=== PATIENT | female | born 1940 | race Caucasian/White ===

== ENCOUNTER 2017-09-23 05:54 | Day surgery (SDC) | payer MEDICARE ==
[~2017-09-23] VITALS: Ht 165.1 cm; Wt 74.9 kg
[~2017-09-23 05:54] MED LIST: REGADENOSON 0.4 MG/5 ML SYRINGE ONE
[2017-09-23 06:50] VITALS: BP 133/84
[2017-09-23] MEDS ORDERED: SODIUM CHLORIDE 0.9% 1,000 ML IV SCH (06:52)
[2017-09-23] MEDS ORDERED: FENTANYL PF 100 MCG/2ML ONE (07:53)
[2017-09-23] MEDS ORDERED: FLUMAZENIL 0.1 MG/1 ML, 5ML ONE (07:53)
[2017-09-23] MEDS ORDERED: MIDAZOLAM 1 MG/ML, 5ML ONE (07:53)
[2017-09-23] MEDS ORDERED: NALOXONE 1 MG/ML, 2ML ONE (07:53)
[2017-09-23] MEDS ORDERED: LIDOCAINE 1%, 20ML ONE (07:57)
== END 2017-09-23 11:00 ==
LOC: OUT 05:54
PROVIDERS: ATTEND Nurse Practitioner Primary Care
DX: C34.92 Malignant neoplasm of unspecified part of left bronchus or lung (principal)
CPT/HCPCS: 32405; 71010; 77012; 88305; 88312; 88341; 88342; 99156; C2613; J2250; J2785; J3010; J3490; J7030; 99157; G0461; J2310

== ENCOUNTER → 2017-10-21 | Outpatient (CLI) | payer MEDICARE | END | disposition home or self-care (01) | LOC: PETCFH 10-10 12:45 | PROVIDERS: ATTEND Thoracic Surgery (Cardiothoracic Vascular Surgery) | DX: C34.32 Malignant neoplasm of lower lobe, left bronchus or lung (principal); D38.1 Neoplasm of uncertain behavior of trachea, bronchus and lung | CPT/HCPCS: 78815; A9552 ==

== ENCOUNTER → 2017-11-01 | Outpatient (CLI) | payer MEDICARE ==
[~2017-11-01] MED LIST changes: +ASPI-496 PO; +CALC1CAP8 PO; +CHOL10003 PO; +MULT-257 PO; -REGADENOSON 0.4 MG/5 ML SYRINGE ONE; +SIMV20TA3 PO; +TIMO5DRO33 RIGHTEYE
[2017-11-01 10:23] LABS: BASOPHILS # (AUTO) 0.03 x10^3/uL (0-0.1); BASOPHILS % (AUTO) 0 % (0-1); EOSINOPHILS # (AUTO) 0.05 x10^3/uL (0-0.4); EOSINOPHILS % (AUTO) 1 % (1-7); LYMPHOCYTES # (AUTO) 1.56 x10^3/uL (1-3.4); LYMPHOCYTES % (AUTO) 18 % (22-44); MD NO; MEAN CORPUSCULAR HEMOGLOBIN 30.7 pg (27.0-34.8); MEAN CORPUSCULAR HGB CONC 33.8 g/dL (32.4-35.8); MEAN CORPUSCULAR VOLUME 90.7 fL (80-100); MONOCYTES # (AUTO) 0.69 x10^3/uL (0.2-0.8); MONOCYTES % (AUTO) 8 % (2-9); NEUTROPHILS # (AUTO) 6.12 x10^3/uL (1.8-6.8); NEUTROPHILS % (AUTO) 72 % (42-75); PLATELET COUNT 283 x10^3/uL (130-400); RED CELL DISTRIBUTION WIDTH 12.4 % (9.6-15.2)
[2017-11-01 10:31] LABS: ALANINE AMINOTRANSFERASE 27 U/L (12-78); ALBUMIN 3.7 g/dL (3.4-5.0); ANION GAP 4 mmol/L (5-15); CALCIUM 9.2 mg/dL (8.5-10.1); CHLORIDE 106 mmol/L (98-107)
[2017-11-01 10:34] LABS: ALKALINE PHOSPHATASE 178 U/L (45-117); BILIRUBIN,TOTAL 0.4 mg/dL (0.2-1.0); TOTAL PROTEIN 8.3 g/dL (6.4-8.2)
== END | disposition home or self-care (01) ==
LOC: STAR 09:08
PROVIDERS: ATTEND Thoracic Surgery (Cardiothoracic Vascular Surgery)
DX: Z01.818 Encounter for other preprocedural examination (principal)
CPT/HCPCS: 36415; 80053; 85025; 93005

== ENCOUNTER 2017-11-06 08:29 | Inpatient (IN) | payer MEDICARE ==
[~2017-11-06] VITALS: Ht 166.4 cm; Wt 76.3 kg
[~2017-11-06 08:29] MED LIST changes: +BUPIVACAINE/PF 0.5% ONE
[2017-11-06 09:27] VITALS: BP 120/80
[2017-11-06] MEDS ORDERED: LACTATED RINGERS 1,000 ML IV SCH ×2 (09:35→11:48)
[2017-11-06] MEDS ORDERED: FENTANYL PF 100 MCG/2ML ONE ×3 (09:51→12:00)
[2017-11-06] MEDS ORDERED: MIDAZOLAM 1 MG/ML, 2ML ONE (09:51)
[2017-11-06] MEDS ORDERED: ROCURONIUM 10 MG/ML,10ML ONE (11:00)
[2017-11-06] MEDS ORDERED: PROPOFOL 10 MG/ML, 20ML ONE (11:00)
[2017-11-06] MEDS ORDERED: PHENYLEPHRINE 10 MG/ML ONE (11:00)
[2017-11-06] MEDS ORDERED: DEXAMETHASONE 4 MG/ML, 1ML ONE ×2 (11:00)
[2017-11-06] MEDS ORDERED: BUPIVACAINE/PF-EPI 0.5% 1:200K IM ONE (11:10)
[2017-11-06] MEDS ORDERED: GLYCOPYRROLATE 0.4 MG/2 ML, 2ML ONE (11:29)
[2017-11-06] MEDS ORDERED: NEOSTIGMINE 1 MG/ML, 10ML ONE (11:29)
[2017-11-06] MEDS ORDERED: ACETAMINOPHEN 325 MG TABLET PO PRN ×2 (11:30→12:00)
[2017-11-06] MEDS ORDERED: ONDANSETRON 2MG/ML, 2ML IVPush PRN (11:30)
[2017-11-06] MEDS ORDERED: HYDROmorphone 1 MG/ML, 1ML IV PRN (11:30)
[2017-11-06] MEDS ORDERED: LABETALOL 5MG/ML, 20ML IV PRN (11:30)
[2017-11-06] MEDS ORDERED: PROMETHAZINE 25 MG/ML, 1ML IV PRN (11:30)
[2017-11-06] MEDS ORDERED: MEPERIDINE/PF 25MG/0.5ML IVPush PRN (11:30)
[2017-11-06] MEDS ORDERED: hydrALAzine 20 MG/ML, 1ML IV PRN (11:30)
[2017-11-06] MEDS ORDERED: ALBUTEROL SULFATE 2.5 MG/3 ML NPPB PRN (11:30)
[2017-11-06] MEDS ORDERED: ALBUTEROL/IPRATROPIUM 2.5MG/0.5MG, 3 ML NPPB PRN (11:30)
[2017-11-06] MEDS ORDERED: OXYcodone 5 MG/5 ML ORAL.SOL UDC PO PRN (11:30)
[2017-11-06] MEDS ORDERED: ACETAMINOPHEN 650 MG/20.3 ML UDC ONE (12:00)
[2017-11-06] MEDS ORDERED: morphine SULFATE 10 MG/ML, 1ML IVPush PRN (12:00)
[2017-11-06] MEDS ORDERED: DIPHENHYDRAMINE 50 MG/ML, 1ML IVPush PRN (12:00)
[2017-11-06] MEDS ORDERED: hydrALAzine 20 MG/ML, 1ML IVPush PRN (12:00)
[2017-11-06] MEDS ORDERED: DIPHENHYDRAMINE 25 MG CAPSULE PO PRN (12:00)
[2017-11-06] MEDS ORDERED: LORazepam 2 MG/ML, 1ML IVPush PRN (12:00)
[2017-11-06] MEDS: FAMOTIDINE 20 MG/2 ML IVPush SCH (12:00)
[2017-11-06] MEDS ORDERED: ACETAMINOPHEN 650 MG SUPP PR PRN (12:00)
[2017-11-06] MEDS ORDERED: LORazepam 1MG TABLET PO PRN (12:00)
[2017-11-06] MEDS ORDERED: FAMOTIDINE 20 MG TABLET PO SCH (12:00)
[2017-11-06] MEDS ORDERED: ENALAPRILAT 1.25 MG/ML, 2ML IVPush PRN (12:00)
[2017-11-06] MEDS ORDERED: OXYcodone 5 MG/5 ML ORAL.SOL UDC ONE (12:01)
[2017-11-06] MEDS: FENTANYL PF 100 MCG/2ML IV PRN ×2 (12:05→12:15)
[2017-11-06 13:30] VITALS: BP 122/78
[2017-11-06] MEDS: TIMOLOL STRENGTH MC SCH ×2 (14:00→22:00)
[2017-11-06] MEDS: HYDROcodone/APAP 5/325 TABLET PO PRN ×2 (14:44→20:31)
[2017-11-06] MEDS ORDERED: ONDANSETRON 2MG/ML, 2ML ONE (16:22)
[2017-11-06 19:49] VITALS: BP 109/71
[2017-11-06] MEDS: SIMVASTATIN 20 MG TABLET PO SCH (20:33)
[2017-11-06] MEDS ORDERED: TEMPLATE NON-FORMULARY MED. (Timolol Maleate 1 DROP) RIGHTEYE SCH (21:00)
[2017-11-07] MEDS: FAMOTIDINE 20 MG/2 ML IVPush SCH (00:22)
[2017-11-07] MEDS: HYDROcodone/APAP 5/325 TABLET PO PRN ×3 (02:37→21:36)
[2017-11-07 02:46] VITALS: BP 117/63
[2017-11-07 03:46] LABS: BASOPHILS % (AUTO) 0 % (0-1); EOSINOPHILS % (AUTO) 0 % (1-7); LYMPHOCYTES % (AUTO) 9 % (22-44); MD NO; MEAN CORPUSCULAR HEMOGLOBIN 30.7 pg (27.0-34.8); MEAN CORPUSCULAR HGB CONC 33.6 g/dL (32.4-35.8); MEAN CORPUSCULAR VOLUME 91.4 fL (80-100); MEAN PLATELET VOLUME 7.2 fL (7.4-10.4); MONOCYTES # (AUTO) 0.34 x10^3/uL (0.2-0.8); MONOCYTES % (AUTO) 4 % (2-9); NEUTROPHILS # (AUTO) 8.32 x10^3/uL (1.8-6.8); NEUTROPHILS % (AUTO) 87 % (42-75); PLATELET COUNT 268 x10^3/uL (130-400); RED BLOOD COUNT 4.05 x10^6/uL (3.82-5.3); RED CELL DISTRIBUTION WIDTH 12.9 % (9.6-15.2)
[2017-11-07 03:47] LABS: ANION GAP 7 mmol/L (5-15); CALCIUM 8.9 mg/dL (8.5-10.1); CHLORIDE 104 mmol/L (98-107); CREATININE 0.74 mg/dL (0.55-1.02)
[2017-11-07] MEDS: TIMOLOL STRENGTH MC SCH (06:00)
[2017-11-07] MEDS: ENOXAPARIN 40 MG/0.4 ML SQ SCH (08:16)
[2017-11-07] MEDS: SODIUM CHLORIDE FLUSH 10ML SYR IVF SCH ×2 (08:17→21:36)
[2017-11-07 08:40] VITALS: BP 104/64
[2017-11-07] MEDS: FAMOTIDINE 20 MG TABLET PO SCH ×2 (10:51→21:35)
[2017-11-07 13:50] VITALS: BP 95/57
[2017-11-07 15:30] VITALS: BP 113/59
[2017-11-07 19:09] VITALS: BP 111/65
[2017-11-07] MEDS: SIMVASTATIN 20 MG TABLET PO SCH (21:36)
[2017-11-08 01:40] VITALS: BP 107/66
[2017-11-08] MEDS: HYDROcodone/APAP 5/325 TABLET PO PRN (07:28)
[2017-11-08 08:02] VITALS: BP 134/81
[2017-11-08] MEDS: SODIUM CHLORIDE FLUSH 10ML SYR IVF SCH (09:00)
[2017-11-08] MEDS: ENOXAPARIN 40 MG/0.4 ML SQ SCH (09:00)
== END 2017-11-08 10:35 | disposition home or self-care (01) | DRG 167 ==
LOC: ORIP 08:29 → 3NW 13:29
PROVIDERS: ADMIT Thoracic Surgery (Cardiothoracic Vascular Surgery); ATTEND Thoracic Surgery (Cardiothoracic Vascular Surgery)
PROC: 07B74ZX Excision of Thorax Lymphatic, Percutaneous Endoscopic Approach, Diagnostic (ICD-10-PCS; 2017-11-06)
PROC: 0BBJ4ZX Excision of Left Lower Lung Lobe, Percutaneous Endoscopic Approach, Diagnostic (ICD-10-PCS; principal; 2017-11-06 11:30)
DX: C34.32 Malignant neoplasm of lower lobe, left bronchus or lung (principal); J93.82 Other air leak; E78.00 Pure hypercholesterolemia, unspecified; R59.9 Enlarged lymph nodes, unspecified; Z85.42 Personal history of malignant neoplasm of other parts of uterus; Z90.710 Acquired absence of both cervix and uterus; Z82.49 Family history of ischemic heart disease and other diseases of the circulatory system
CPT/HCPCS: 36415; 71045; 80048; 85025; 86850; 86900; 86923; 88305; 88309; 88341; 88342; C1729; J1100; J1650; J2250; J2405; J2704; J2710; J3010; J3490; G0461; J2370; J7120; S0028

== ENCOUNTER → 2018-01-08 | Outpatient (CLI) | payer MEDICARE ==
[~2018-01-08] MED LIST changes: -BUPIVACAINE/PF 0.5% ONE; +OMNIPAQUE 350 MG/ML, 100ML BOTTLE ONE
== END | disposition home or self-care (01) ==
LOC: CFH 10:53
PROVIDERS: ATTEND Specialist
DX: K40.20 Bilateral inguinal hernia, without obstruction or gangrene, not specified as recurrent (principal); K76.0 Fatty (change of) liver, not elsewhere classified; C54.9 Malignant neoplasm of corpus uteri, unspecified; C78.02 Secondary malignant neoplasm of left lung
CPT/HCPCS: 71260; 74177; Q9967

== ENCOUNTER → 2018-05-23 | Outpatient (CLI) | payer MEDICARE | END | disposition home or self-care (01) | LOC: CFH 08:40 | PROVIDERS: ATTEND Internal Medicine | DX: C54.8 Malignant neoplasm of overlapping sites of corpus uteri (principal); C34.90 Malignant neoplasm of unspecified part of unspecified bronchus or lung; J84.9 Interstitial pulmonary disease, unspecified; K31.89 Other diseases of stomach and duodenum | CPT/HCPCS: 71260; 74177; Q9967 ==

== ENCOUNTER → 2018-08-11 | Outpatient (CLI) | payer MEDICARE | END | disposition home or self-care (01) | LOC: CFH 09:43 | PROVIDERS: ATTEND Internal Medicine | DX: J84.9 Interstitial pulmonary disease, unspecified (principal); K31.9 Disease of stomach and duodenum, unspecified | CPT/HCPCS: 71260; 74177; 82565; Q9967 ==